=== PATIENT | male | born 1985 | race Caucasian/White ===

== ENCOUNTER 2017-01-31 07:56 | Day surgery (SDC) | payer OTHER ==
[~2017-01-31] VITALS: Ht 175.3 cm; Wt 97.5 kg
[2017-01-31 08:56] LABS: HEMATOCRIT 43.2 % (36-52); HEMOGLOBIN 14.3 g/dL (12.0-18.0); MEAN CORPUSCULAR HEMOGLOBIN 29 pg (27-31); MEAN CORPUSCULAR HGB CONC 33 g/dL (33-37); MEAN CORPUSCULAR VOLUME 88 fL (80-94); PLATELET COUNT (AUTO) 317 K/uL (140-450); RED BLOOD CELL COUNT(AUTO) 4.91 MIL/uL (4.20-6.10); RED CELL DISTRIBUTION WIDTH 12.8 % (11.6-13.7); WHITE BLOOD COUNT (AUTO) 6.9 K/uL (4.8-10.8)
[2017-01-31 09:10] LABS: ANION GAP 9.6 (8-16); CARBON DIOXIDE 32.2 mmol/L (21-32); CREATININE 0.8 mg/dL (0.7-1.3); POTASSIUM 3.8 mmol/L (3.5-5.1)
[2017-01-31 09:21] LABS: LYMPHOCYTES % (MANUAL) 28 % (20-46); MONOCYTES % (MANUAL) 7 % (5-12)
[2017-01-31] MEDS ORDERED: BUPIVACAINE-MPF 0.25% 30 ML VIAL INJ ONE (09:28)
[2017-01-31] MEDS ORDERED: fentaNYL 0.05 MG/ML VIAL ONE (09:37)
[2017-01-31] MEDS ORDERED: ONDANSETRON 4 MG/2 ML VIAL IVP ONE (10:06)
[2017-01-31] MEDS ORDERED: DEXAMETHASONE 4 MG/ML VIAL IVP ONE (10:06)
[2017-01-31] MEDS ORDERED: PROPOFOL 200 MG/20 ML VIAL IV ONE (10:06)
[2017-01-31] MEDS ORDERED: SUCCINYLCHOLINE CHLORIDE 200 MG/10 ML VIAL IV ONE (10:06)
[2017-01-31] MEDS ORDERED: KETOROLAC 30 MG/ML VIAL IVP ONE (10:06)
[2017-01-31] MEDS ORDERED: DESFLURANE 240 ML BTL INH ONE (10:06)
[2017-01-31] MEDS ORDERED: ONDANSETRON 4 MG/2 ML VIAL IVP PRN (10:30)
[2017-01-31] MEDS ORDERED: HYDROmorphone 1 MG/ML AMP IVP PRN (10:30)
== END 2017-01-31 12:45 | disposition home or self-care (01) ==
LOC: MDS 07:56 → MMU 07:57 → MDS 12:45
PROVIDERS: ATTEND Surgery
DX: D17.79 Benign lipomatous neoplasm of other sites (principal)
CPT/HCPCS: 36415; 71010; 80048; 85025; J0330; J0690; J1100; J1885; J2405; J2704; J3010; J3490; J7060; J7120